=== PATIENT | female | born 1960 | race Caucasian/White ===

== ENCOUNTER 2021-12-13 21:31 | Outpatient (REF) | payer MEDICAID, SELFPAY ==
[2021-12-15 11:47] LABS: COVID-19 RT-PCR UVMMC Result Negative (Negative)
== END 2021-12-13 21:32 | disposition home or self-care (01) ==
LOC: LBN 21:31
PROVIDERS: Visit Provider Family Medicine
DX: Z20.822 Contact with and (suspected) exposure to COVID-19 (principal); J44.1 Chronic obstructive pulmonary disease with (acute) exacerbation
CPT/HCPCS: U0003

== ENCOUNTER 2021-12-25 13:57 | Emergency (ER) | payer MEDICAID, SELFPAY ==
[2021-12-25] VITALS (32 sets, daily range): BP systolic 100–136; BP diastolic 52–97; PULSE 93–120; RESP 8–26; TEMP 36.8; O2SAT 88–98
--- NOTE | 2021-12-25 13:59 | ED.GENADUL_ITS ---
Discharge Plan Disposition Patient Disposition: HOME Condition: Improving Discharge Details Clinical Impression: Acute bronchitis with COPD Primary Care Provider: Unknown,Unknown ED Provider: Renata Knowles Home Meds and New Rx's Prescriptions: New prednisone 20 mg tablet See Rx Instructions .ROUTE .COMPLEX Qty: 18 0RF Rx Instructions: Take 3 tabs daily for 3 days, then 2 tabs daily for 3 days, then 1 tab daily for 3 days. amoxicillin-pot clavulanate 875-125 mg tablet 1 tab PO BID 10 Days Qty: 20 0RF albuterol sulfate 2.5 mg /3 mL (0.083 %) solution for nebulization 2.5 mg IH Q4H PRN (Reason: shortness of breath or wheezing) Qty: 75 0RF benzonatate 100 mg capsule 100 mg PO TID PRN (Reason: cough) Qty: 14 0RF Continued lorazepam 0.5 mg Tablet 0.5 mg PO HS PRN0RF oxycodone 20 mg Tablet Extended Release 12 Hr 20 mg PO BID 0RF fluticasone propion-salmeterol [Advair Diskus] 250-50 mcg/dose Blister With Device 1 inh INHALATION DAILY 0RF albuterol sulfate 0.63 mg/3 mL Solution For Nebulization 0.63 mg inhalation PRN PRN0RF albuterol sulfate 90 mcg/actuation Hfa Aerosol Inhaler 2 puff INHALATION PRN PRN0RF oxycodone [Roxicodone] 5 mg Tablet 5 mg PO PRN PRN0RF prenat.vits,jessica,[id number] Tablet 1 tab PO DAILY 0RF Discharge Instructions Instructions: COPD (Chronic Obstructive Pulmonary Disease) (ED) Additional Instructions: Your lab work and imaging today is reassuring and shows no evidence of acute concerning or significant findings. Your Covid and flu tests were negative. Your chest x-ray is negative for pneumonia. Your chest CT scan is negative for a blood clot in your lung. You are being sent home with a prescription for steroids to take as directed until finished. You can hold on taking the antibiotics unless your symptoms do not improve or worsen over the next few days. Continue to use your regular inhalers as directed. Follow-up with your primary care doctor in 1 week. Return to the emergency department with any worsening or new concerning symptoms. Discharge Data Discharge Date/Time-TO BE ENTERED AT DEPARTURE: 12/25/21 19:03 Discharge Physician: Renata Knowles Medical Decision Making 1420 -- 61-year-old female with a history of COPD on Advair and chronic back pain on OxyContin who presents with shortness of breath cough and general malaise for the past 2 weeks. Heart rate low 100s. Oxygen saturation 92% on room air. She is speaking in full sentences and appears in no acute respiratory distress. She has no wheezing on exam. She is coughing and is noted to have a productive congested cough on exam. Differential diagnosis includes acute bronchitis, COPD exacerbation, pneumonia, Covid. History and presentation appears most likely consistent with PE considering the productive cough, but will obtain screening labs, D-dimer, chest x-ray and give steroids, nebs, fluids and reassess 1600 --patient reassessed and she feels slightly better. She now has wheezing throughout. Oxygen saturation 91 to 92% on room air. She otherwise appears in no acute respiratory distress Labs reviewed. Normal white blood cell count. Covid negative. D-dimer 643 which is just slightly above age-adjusted cut off. Chest x-ray notes hyperinflation but no obvious acute suspect most likely bronchitis or COPD, but will obtain a CT chest patient is agreeable. 181 --CT reviewed and negative for PE or pneumonia. Patient reassessed and she feels much better. She was able to eat and is requesting to go home. We will send with prescriptions for steroids and antibiotics. She states she has plenty of her albuterol and Advair at home. Advised to follow up with the primary care doctor for re-evaluation. Usual and customary return precautions given prior to discharge. Patient was also informed of bilateral thyroid nodules noted on scan and to obtain an outpatient ultrasound through her primary care doctor. Medical Records Medical records reviewed: Yes I reviewed the patient's medical records. Imaging Data Radiologic Study: Radiologist's impression: XR Chest Exam date and time: 12/25/2021 3:32 PM Age: 61 years old Clinical indication: Other: Cough, R/O acute disease TECHNIQUE: Imaging protocol: XR of the chest. Views: 2 views. COMPARISON: No relevant prior studies available. FINDINGS: Lungs:? The lungs are hyperinflated without consolidation.? No pulmonary vascular congestion seen. Pleural spaces:? No pleural effusion or pneumothorax. Heart/Mediastinum:? Cardiomediastinal silhouette is stable with normal heart size, left descending thoracic aorta and mildly off centered trachea. Bones/joints:? Unremarkable for patient's stated age. IMPRESSION: Hyperinflated lungs without acute cardiopulmonary finding. CTA Chest With Contrast Exam date and time: 12/25/2021 4:53 PM Age: 61 years old Clinical indication: Other: SOB, R/O pe TECHNIQUE: Imaging protocol: Computed tomographic angiography of the chest with contrast. 3D rendering (Not supervised by radiologist): MIP and/or 3D reconstructed images were created by the technologist. Radiation optimization: All CT scans at this facility use at least one of these dose optimization techniques: automated exposure control; mA and/or kV adjustment per patient size (includes targeted exams where dose is matched to clinical indication); or iterative reconstruction. Contrast material: OMNIPAQUE 350; Contrast volume: 70 ml; Contrast route: INTRAVENOUS (IV);? COMPARISON: CR XR CHEST 2V PA LATERAL 12/25/2021 3:32 PM FINDINGS: Pulmonary arteries:? Hounsfield attenuation of the right pulmonary artery measures 568 and therefore this study is diagnostic.? No main, lobar or segmental pulmonary artery embolus seen. Aorta:? No thoracic aorta aneurysm or dissection. Lungs:? Lungs are hyperinflated with heterogeneous appearance of the lung parenchyma consistent with emphysematous changes.? No infiltrate. Pleural spaces:? No pleural effusion or pneumothorax. Mediastinum:? There are likely bilateral thyroid lobe hypodensities, measuring approximately 12 mm for the right thyroid lobe and 10 mm for the left.? Smaller thyroid hypodensities likely present.? Heart size is normal.? No pericardial effusion or thickening.? Esophagus appears unremarkable.? Incidental note is made of soft tissue density within the mediastinal fat of the superior anterior mediastinum, series 4, image 19 which may represent reactive versus residual thymus. Lymph nodes:? No definite mediastinal lymphadenopathy. Superior abdomen:? Visualized portion of the liver, kidneys, spleen, pancreas, stomach and bowel are unremarkable in appearance.? The adrenal glands are not well seen. Bones/joints:? No acute osseous injury or underlying osseous mass. Soft tissues:? Unremarkable. IMPRESSION: 1. No main, lobar or segmental pulmonary artery. 2. Hyperinflated lungs with heterogeneous appearance concerning for emphysematous change.? 3.? Bilateral thyroid lobe nodules.? Recommend nonemergent short-term ultrasound to better evaluate these hypodensities. Lab Data Lab results reviewed: Yes I reviewed the patient's lab results. Labs: Laboratory Tests Range/Units 12/25/21 12/25/21 12/25/21 14:38 14:50 14:50 WBC (4.4-10.8) 10^3/uL 10.10 RBC (3.93-5.22) 10^6/uL 5.07 Hgb (11.2-15.7) g/dL 14.5 Hct (36.0-46.0) % 45.0 MCV (80-95) fL 88.8 MCH (27.0-33.0) pg 28.6 MCHC (32.0-36.0) % 32.2 RDW (11.7-14.6) % 14.1 Plt Count (130-400) 10^3/uL 244 MPV (8.0-11.0) fL 10.0 Immature Gran % 0.3 Neutrophils % 72.5 Lymphocytes % 16.4 Monocytes % 9.3 Eosinophils % 1.0 Basophils % 0.5 Nucleated RBC % % 0 Absolute Neutrophils (1.2-6.7) 10^3/uL 7.32 H Absolute Lymphocytes (1.2-3.4) 10^3/uL 1.66 Absolute Monocytes (0.1-0.8) 10^3/uL 0.94 H Absolute Eosinophils (0.0-0.7) 10^3/uL 0.10 Absolute Basophils (0.0-0.2) 10^3/uL 0.05 D-Dimer (<500) ng/mlFEU Sodium (136-145) mmol/L 143 Potassium (3.5-5.1) mmol/L 3.9 Chloride (98-107) mmol/L 108 H Carbon Dioxide (21.0-32.0) mmol/L 27.7 Anion Gap (3-11) mmol/L 7.3 BUN (7-18) mg/dL 16 Creatinine (0.55-1.02) mg/dL 0.7 Estimated GFR/1.73 m2 (mL/min/1.73m2) >= 60.00 Glucose (74-106) mg/dL 118 H Calcium (8.5-10.1) mg/dL 9.4 Total Bilirubin (0.2-1.0) mg/dL 0.2 AST (15-37) U/L 16 ALT (14-59) U/L 31 Alkaline Phosphatase (46-116) U/L 116 Total Protein (6.4-8.2) g/dL 7.5 Albumin (3.4-5.0) g/dL 3.6 SARS-CoV-2 (PCR) (Negative) Negative Influenza Type A (PCR) (Negative) Negative Influenza Type B (PCR) (Negative) Negative RSV (PCR) (Negative) Negative Range/Units 12/25/21 14:50 WBC (4.4-10.8) 10^3/uL RBC (3.93-5.22) 10^6/uL Hgb (11.2-15.7) g/dL Hct (36.0-46.0) % MCV (80-95) fL MCH (27.0-33.0) pg MCHC (32.0-36.0) % RDW (11.7-14.6) % Plt Count (130-400) 10^3/uL MPV (8.0-11.0) fL Immature Gran % Neutrophils % Lymphocytes % Monocytes % Eosinophils % Basophils % Nucleated RBC % % Absolute Neutrophils (1.2-6.7) 10^3/uL Absolute Lymphocytes (1.2-3.4) 10^3/uL Absolute Monocytes (0.1-0.8) 10^3/uL Absolute Eosinophils (0.0-0.7) 10^3/uL Absolute Basophils (0.0-0.2) 10^3/uL D-Dimer (<500) ng/mlFEU 643 H Sodium (136-145) mmol/L Potassium (3.5-5.1) mmol/L Chloride (98-107) mmol/L Carbon Dioxide (21.0-32.0) mmol/L Anion Gap (3-11) mmol/L BUN (7-18) mg/dL Creatinine (0.55-1.02) mg/dL Estimated GFR/1.73 m2 (mL/min/1.73m2) Glucose (74-106) mg/dL Calcium (8.5-10.1) mg/dL Total Bilirubin (0.2-1.0) mg/dL AST (15-37) U/L ALT (14-59) U/L Alkaline Phosphatase (46-116) U/L Total Protein (6.4-8.2) g/dL Albumin (3.4-5.0) g/dL SARS-CoV-2 (PCR) (Negative) Influenza Type A (PCR) (Negative) Influenza Type B (PCR) (Negative) RSV (PCR) (Negative) HPI General Mode of arrival: ambulatory . Date/Time Provider Initiated Documentation: 12/25/21 13:58 . Limitations to Documentation: no limitations . Information obtained by: patient . HPI Narrative: Patient is a 61-year-old female with a history of COPD on Advair and chronic back pain on OxyContin who presents with over 2 weeks of cough, shortness of breath and general malaise. She states she was seen at urgent care for her symptoms a couple weeks ago and given Augmentin and prednisone which she took for 7 days which did improve her symptoms but they did not completely resolved and when she stopped the medication her symptoms returned and worsened. She admits to a cough which was initially productive with white sputum but since yesterday has been green. She states over the last 24 hours she has become more short of breath that is mainly occurring with activity. She denies any known fever, chest pain, vomiting or diarrhea, loss of sense of smell or taste. She states he was fully vaccinated for COVID including 3 vaccines and denies any recent exposure to coronavirus. Related Data Home Medications Medication Instructions Recorded Confirmed albuterol sulfate 0.63 mg/3 mL 0.63 mg INHALATION PRN PRN 12/25/21 12/25/21 solution for nebulization albuterol sulfate 90 mcg/actuation 2 puff INHALATION PRN PRN 12/25/21 12/25/21 aerosol inhaler amoxicillin 875 mg-potassium 1 tab PO BID 10 Days #20 tab 12/25/21 clavulanate 125 mg tablet fluticasone 250 mcg-salmeterol 50 1 inh INHALATION DAILY 12/25/21 12/25/21 mcg/dose blistr powdr for inhalation (Advair Diskus) lorazepam 0.5 mg tablet 0.5 mg PO HS PRN 12/25/21 12/25/21 oxycodone 20 mg tablet,extended 20 mg PO BID 12/25/21 12/25/21 release,12 hr oxycodone 5 mg tablet (Roxicodone) 5 mg PO PRN PRN 12/25/21 12/25/21 prednisone 20 mg tablet See Rx Instructions .ROUTE 12/25/21 .COMPLEX #18 tab prenat.vits,jessica,uso-[id number]-[id number] 1 tab PO DAILY 12/25/21 12/25/21 albuterol sulfate 2.5 mg (3 mL) IH Q4H PRN #75 ml 12/26/21 benzonatate 100 mg capsule 100 mg PO TID PRN #14 cap 12/26/21 Previous Rx's Medication Instructions Recorded amoxicillin 875 mg-potassium 1 tab PO BID 10 Days #20 tab 12/25/21 clavulanate 125 mg tablet prednisone 20 mg tablet See Rx Instructions .ROUTE 12/25/21 .COMPLEX #18 tab albuterol sulfate 2.5 mg (3 mL) IH Q4H PRN #75 ml 12/26/21 benzonatate 100 mg capsule 100 mg PO TID PRN #14 cap 12/26/21 Allergies Allergy/AdvReac Type Severity Reaction Status Date / Time aspirin AdvReac Mild Skin Rash Unverified 12/25/21 14:05 General Stated Complaint: SOB CASI: 3 Review of Systems All systems reviewed & are unremarkable except as noted in HPI and below Constitutional Constitutional: Denies chills, Denies excessive sweating, Denies fatigue, Denies fever(s), Denies weakness and Denies weight loss Eyes Eyes: Reports system reviewed and no additional complaints, except as documented and Denies blurry vision ENT Ears, Nose, Mouth, and Throat: Denies vertigo, Denies dizziness, Denies otalgia, Denies nasal congestion, Denies sore throat and Denies throat swelling Cardiovascular Cardiovascular: Denies chest pain, Denies syncope, Denies rapid heart rate and Reports dyspnea Respiratory Respiratory: Reports chest congestion, Reports cough, Denies pain on inspiration and Reports dyspnea Gastrointestinal Gastrointestinal: Denies abdominal pain, Denies diarrhea and Denies vomiting Genitourinary Genitourinary: Denies hematuria, Denies dysuria and Denies flank pain Musculoskeletal Musculoskeletal: Denies back pain and Denies joint swelling Integumentary/Breasts Skin/Breast: Denies lesions and Denies rash Neurologic Neurologic: Denies behavioral changes, Denies confusion, Denies vertigo, Denies dizziness, Denies syncope, Denies localized weakness and Denies weakness Psychiatric Psychiatric: Denies behavioral changes, Denies confusion and Denies depression Endocrine Endocrine: Denies excessive sweating and Denies fatigue Hematologic/Lymphatic Hematologic/Lymphatic: Denies easy bruising and Denies lymphadenopathy Allergic/Immunologic Allergic/Immunologic: Denies throat swelling PFSH All Active Problems (Updated 12/25/21 @ 18:27 by Renata Knowles DO) Acute bronchitis with COPD (Acute) Medical History (Updated 12/25/21 @ 18:27 by Renata Knowles DO) Chronic back pain COPD (chronic obstructive pulmonary disease) Surgical History (Updated 12/25/21 @ 14:42 by Renata Knowles DO) H/O oophorectomy History of appendectomy History of colostomy with reversal History of lumbar fusion History of tonsillectomy Social History Smoking/Tobacco Use Status: Former Tobacco Use Quit Date: 10/02/21 Smoking risk assessment performed?: Yes Do you feel safe at home: Yes Do you feel safe in your relationship?: Yes Exam Const General: cooperative and healthy appearing Orientation: alert and awake HENMT Head: normal to inspection Ears: hearing grossly normal bilaterally, external ears normal and TM's normal bilaterally General nose exam: external nose normal Face and sinus: normal facial exam Mouth: oral mucosae normal Teeth and gingiva: dentition normal Throat: posterior oropharynx normal Eyes General: appearance normal, both eyes and all related structures Eyelids: eyelids normal Pupils: PERRL EOM: EOM intact bilaterally Neck Neck: normal visual inspection Lymphatic: no lymphadenopathy noted Chest Chest: normal inspection of the chest Resp Effort & Inspection: normal respiratory effort, able to speak in complete sentences and cough Quality of cough: actively coughing Auscultation: clear to auscultation bilaterally Cardio Rate: regular rate Rhythm: regular rhythm GI Inspection: normal to inspection Palpation: soft, not firm, no guarding, no hepatosplenomegaly, no masses and nontender Auscultation: normal bowel sounds Back/Spine/Pelvis Back: no CVA tenderness Skin General skin exam: no rashes or lesions noted Neuro General: patient alert and patient awake Cognition: normal cognition Speech: speech normal Gait: normal gait Motor: muscle tone normal throughout Sensory Exam: no sensory deficits noted Extrem General: normal to inspection, full ROM, capillary refill normal and no edema Psych Appearance: grossly normal Mental Status: mental status grossly normal Speech and Movement: speech and movement normal Affect: normal affect Thought Process: normal
--- NOTE | 2021-12-25 14:30 | DI.RAD_ITS ---
Exam(s) XR CHEST 2V PA LATERAL EXAM: XR CHEST 2V PA LATERAL CLINICAL HISTORY: cough, r/o acute disease TECHNIQUE: 2D digital imaging was performed. COMPARISON: No exams were available for comparison FINDINGS: MEDIASTINUM: Normal. HEART: Normal. PULMONARY VASCULATURE: Normal. LUNGS: Hyperinflated but clear. PLEURAL SPACE: No pleural effusion or pneumothorax. BONE:Unremarkable for age. IMPRESSION: No acute abnormality. DATA REPOSITORY: RADIATION DOSE DELIVERED:
[2021-12-25] MEDS: predniSONE 20 MG TAB 60 MG PO (15:01)
[2021-12-25] MEDS: guaiFENesin/CODEINE PHOSPHATE 10 ML CUP 5 ML PO (15:02)
[2021-12-25] MEDS: Albuterol/Ipratropium 3 ML UPD VIAL UPD (15:02)
[2021-12-25] MEDS: Normal Saline 1,000 ML 1000 ML IV (15:02)
[2021-12-25] MEDS: Normal Saline Flush 10 ML SYR IVP (15:02)
[2021-12-25 15:09] LABS: Abs Immature Grans 0.03 10^3/uL (0.0-0.06); Absolute Basophil Count 0.05 10^3/uL (0.0-0.2); Absolute Lymphocyte Count 1.66 10^3/uL (1.2-3.4); Absolute Monocyte Count 0.94 10^3/uL (0.1-0.8); Absolute Neutrophil Count 7.32 10^3/uL (1.2-6.7); Basophils % 0.5; HGB 14.5 g/dL (11.2-15.7); Immature Grans % 0.3; Lymphocytes % 16.4; MCH 28.6 pg (27.0-33.0); MCHC 32.2 % (32.0-36.0); MCV 88.8 fL (80-95); Monocytes % 9.3; Neutrophils % 72.5; Nucleated RBC 0 %; Platelet Count 244 10^3/uL (130-400); RBC 5.07 10^6/uL (3.93-5.22); RDW 14.1 % (11.7-14.6); RDW-SD 45.8 fL
[2021-12-25 15:21] LABS: ALT 31 U/L (14-59); AST 16 U/L (15-37); Albumin 3.6 g/dL (3.4-5.0); Alkaline Phosphatase 116 U/L (46-116); Anion Gap 7.3 mmol/L (3-11); BUN 16 mg/dL (7-18); Bilirubin, Total 0.2 mg/dL (0.2-1.0); CO2 27.7 mmol/L (21.0-32.0); CREATININE 0.7 mg/dL (0.55-1.02); Calcium 9.4 mg/dL (8.5-10.1); Chloride 108 mmol/L (98-107); Glucose 118 mg/dL (74-106); Potassium 3.9 mmol/L (3.5-5.1); Sodium 143 mmol/L (136-145); Total Protein 7.5 g/dL (6.4-8.2)
[2021-12-25 15:29] LABS: COVID-19 PCR Negative (Negative); Influenza A PCR Negative (Negative); Influenza B PCR Negative (Negative); RSV PCR Negative (Negative)
[2021-12-25 15:51] LABS: D-Dimer 643 ng/mlFEU (<500)
--- NOTE | 2021-12-25 16:00 | DI.CT_ITS ---
Exam(s) CT CHEST PE CTA EXAM: CT CHEST PE CTA CLINICAL HISTORY: shortness of breath, r/o PE. TECHNIQUE: Imaging Protocol: Axial CT angiography was performed with multi-slice acquisition and mu lti-planar and/or 3D reconstructions. CONTRAST MATERIAL: Intravenous: Omnipaque 350 Contrast volume:70 ml COMPARISON: CR,XR XR CHEST 2V PA LATERAL from 12/25/2021 FINDINGS: Pulmonary Arteries: No evidence of filling defect to suggest pulmonary emboli. Tracheobronchial tree: Patent where visualized. Thyroid: Bilateral nodules up to 2.8 cm. Area of soft tissue density projecting posterior to the low er pole of the right lobe with of the thyroid may represent an additional thyroid nodule. Ultrasound recommended for further evaluation. Mediastinum and Lynette: No dominant adenopathy or fluid collection. Pulmonary parenchyma: Emphysematous changes, hyperinflation. No consolidation or dominant measurable mass. Pleura: No effusion or pneumothorax. Heart: The heart is not dilated. No coronary artery calcifications are seen. Aorta: Ascending aorta 3.5 cm. Mild calcifications in thoracic aorta... No aneurysm. No dissection . Abdominal aorta shows calcification and irregular mural thrombus beneath the level of the renal ar teries.. Upper abdomen: Unremarkable. Bones: Unremarkable for age. IMPRESSION: No evidence of pulmonary embolism. Emphysematous changes. Multiple bilateral thyroid nodules. Ultrasound recommended for further evaluation. RADIATION DOSE DELIVERED: 188.46mGy.cm Total DLP DATA REPOSITORY: All CT scans at this facility are submitted to the National Radiology Data Registry (NRDR) Dose Index Registry (DIR) with the [employer] ([employer]). RADIATION OPTIMIZATION: All CT scans at this facility use at least one of these dose optimization te chniques: automated exposure control; mA and/or kV adjustment per patient size (includes targeted exa ms where dose is matched to clinical indication); or iterative reconstruction.
[2021-12-25] MEDS: oxyCODONE 10 MG TAB PO (16:20)
[2021-12-25] MEDS: Omnipaque 350 MG/ML 100 ML BTL IJ (16:57)
[2021-12-25] MEDS: Albuterol 2.5 MG/3 ML INH SOLN VIAL 5 MG UPD (17:09)
--- NOTE | 2021-12-25 17:12 | DI.VRAD_ITS ---
PROCEDURE INFORMATION: Exam: XR Chest Exam date and time: 12/25/2021 3:32 PM Age: 61 years old Clinical indication: Other: Cough, R/O acute disease TECHNIQUE: Imaging protocol: XR of the chest. Views: 2 views. COMPARISON: No relevant prior studies available. FINDINGS: Lungs: The lungs are hyperinflated without consolidation. No pulmonary vascular congestion seen. Pleural spaces: No pleural effusion or pneumothorax. Heart/Mediastinum: Cardiomediastinal silhouette is stable with normal heart size, left descending thoracic aorta and mildly off centered trachea. Bones/joints: Unremarkable for patient's stated age. IMPRESSION: Hyperinflated lungs without acute cardiopulmonary finding. Dictated and Authenticated by: Alexis Kirby MD. Ordering:REYNALDO Yanez MD
--- NOTE | 2021-12-25 17:30 | DI.VRAD_ITS ---
PROCEDURE INFORMATION: Exam: CTA Chest With Contrast Exam date and time: 12/25/2021 4:53 PM Age: 61 years old Clinical indication: Other: SOB, R/O pe TECHNIQUE: Imaging protocol: Computed tomographic angiography of the chest with contrast. 3D rendering (Not supervised by radiologist): MIP and/or 3D reconstructed images were created by the technologist. Radiation optimization: All CT scans at this facility use at least one of these dose optimization techniques: automated exposure control; mA and/or kV adjustment per patient size (includes targeted exams where dose is matched to clinical indication); or iterative reconstruction. Contrast material: OMNIPAQUE 350; Contrast volume: 70 ml; Contrast route: INTRAVENOUS (IV); COMPARISON: CR XR CHEST 2V PA LATERAL 12/25/2021 3:32 PM FINDINGS: Pulmonary arteries: Hounsfield attenuation of the right pulmonary artery measures 568 and therefore this study is diagnostic. No main, lobar or segmental pulmonary artery embolus seen. Aorta: No thoracic aorta aneurysm or dissection. Lungs: Lungs are hyperinflated with heterogeneous appearance of the lung parenchyma consistent with emphysematous changes. No infiltrate. Pleural spaces: No pleural effusion or pneumothorax. Mediastinum: There are likely bilateral thyroid lobe hypodensities, measuring approximately 12 mm for the right thyroid lobe and 10 mm for the left. Smaller thyroid hypodensities likely present. Heart size is normal. No pericardial effusion or thickening. Esophagus appears unremarkable. Incidental note is made of soft tissue density within the mediastinal fat of the superior anterior mediastinum, series 4, image 19 which may represent reactive versus residual thymus. Lymph nodes: No definite mediastinal lymphadenopathy. Superior abdomen: Visualized portion of the liver, kidneys, spleen, pancreas, stomach and bowel are unremarkable in appearance. The adrenal glands are not well seen. Bones/joints: No acute osseous injury or underlying osseous mass. Soft tissues: Unremarkable. IMPRESSION: 1. No main, lobar or segmental pulmonary artery. 2. Hyperinflated lungs with heterogeneous appearance concerning for emphysematous change. 3. Bilateral thyroid lobe nodules. Recommend nonemergent short-term ultrasound to better evaluate these hypodensities. Dictated and Authenticated by: Alexis Kirby MD. Ordering:REYNALDO Yanez MD
--- NOTE | 2021-12-25 20:40 | NUR.NOTE ---
Referral to Care Management to help get patient established with PCP within a week to f/u for Bronchitis and COPD.Nursing Note:
== END 2021-12-25 19:03 | disposition home or self-care (01) ==
PROVIDERS: Emergency Provider Physician Assistant
DX: J20.9 Acute bronchitis, unspecified (principal); J44.0 Chronic obstructive pulmonary disease with (acute) lower respiratory infection; G89.29 Other chronic pain; M54.9 Dorsalgia, unspecified; Z79.899 Other long term (current) drug therapy
CPT/HCPCS: 36415; 71275; 80053; 87637; 94640; 96361; 99284; 71046; 85025; 85379; J3490; J7512; J7613; J7620

== ENCOUNTER → 2022-03-25 00:34 | Outpatient (CLI) | payer MEDICAID, SELFPAY ==
--- OUTSIDE RECORDS SUMMARY | 2022-03-25 00:41 | XMS_ITS | Clinical Summary ---
:1960 Demographics Home Phone Preferred Language Unknown Marital Status Unknown Catholic Affiliation Unknown Race Unknown Ethnic Group Unknown Author Organization [facility] Address [address] [place] [id number] Care Team Providers Name Role Phone Unavailable Primary Care Provider Unavailable Social History Tobacco Use Types Packs/Day Years Used Date Never Assessed Sex Assigned at Date Recorded Not on file Plan of Treatment Not on file
--- OUTSIDE RECORDS SUMMARY | 2022-03-25 00:41 | XMS_ITS | Encounter Summary ---
:1960 Demographics Home Phone Preferred Language Unknown Marital Status Unknown Islam Affiliation Unknown Race Unknown Ethnic Group Unknown Author Organization [facility] Address [address] [place] [address] Care Team Providers Name Role Phone Unavailable Primary Care Provider Unavailable Encounter Details Date Type Department Care Team Description 12/14/2021 Lab Requisition [facility] Outr Resulting Lab, Pathology & Laboratory Provider [facility] [address] [place] [address] Social History Tobacco Use Types Packs/Day Years Used Date Never Assessed Sex Assigned at Date Recorded Not on file documented as of this encounter Plan of Treatment Not on filedocumented as of this encounter Procedures Procedure Name Priority Date/Time Associated Diagnosis Comme nts COVID-19 TEST [facility] Today 12/13/2021 15:30 LAB PCR EDT COVID-19 TESTING Routine 12/13/2021 15:30 Results for this EDT procedure are i n the results section. documented in this encounter Results COVID-19 TEST [facility] PCR (12/13/2021 15:30 EDT) Specimen Swab Performing Organization Address City/State/ZIP Code Phon e Number [facility] [address] [place] [address] SERVICES COVID-19 TESTING (12/13/2021 15:30 EDT) COVID-19 rt-PCR Negative Negative [facility] Result Comment: [facility] This test has not been FDA c leared or approved. This test has been authorized by FDA under an EUA for use by authorized laboratories. This test has been authorized only for detection of nucleic acid fro SERVICES m 2019-nCoV, not for any oth er viruses or pathogens. This test is only authorized for the duration of the declaration that circumstances exist justifying the authorization of emergency use of in vitro d iagnostic tests for detectio n and/or diagnosis of 2019-nCoV under section 564(b)(1) of Act, 21 U.S.C ?? 360bbb-3(b) (1), unless the authorization is terminated or revoked sooner. Negative results do not prec lude 2019-nCoV infection and should not be used as the sole basis for treatment or other patient management decisions. Negative results must be combined with clinical observa tions, patient history, and epidemiological informatio n. Testing was performed using the amber SARS-CoV-2 assay ([employer] on the Amber 6800 System Performing Lab Amber 6800 [facility] Lab [facility] SERVICES Specimen Swab Performing Organization Address City/State/ZIP Code Phon e Number [facility] [address] [place] [address] SERVICES documented in this encounter Visit Diagnoses Not on filedocumented in this encounter
== END ==
PROVIDERS: PCP Nurse Practitioner Family; Visit Provider Nurse Practitioner

== ENCOUNTER → 2022-04-28 02:14 | Outpatient (CLI) | payer MEDICAID, SELFPAY | PROVIDERS: PCP Nurse Practitioner Family; Visit Provider Nurse Practitioner Family ==

== ENCOUNTER → 2022-05-09 02:39 | Outpatient (CLI) | payer MEDICAID, SELFPAY ==
--- NOTE | 2022-05-09 07:30 | DI.MRI_ITS ---
Exam(s) MR LUMBAR SPINE WO EXAM: MR LUMBAR SPINE WO CLINICAL HISTORY: LUMAGO,M54.40,INTERVERTEBRAL DISC DEGENERATION,M51.37. TECHNIQUE: Multiplanar multisequence MRI of the Lumbar spine was performed. COMPARISON: None. FINDINGS: There are no plain films available time this MRI interpretation. Therefore 5 lumbar vertebrae are pr esumed. Conus medullaris is at normal level. There is no evidence of conus mass nor subjacent clumping of in trathecal nerve roots to suggest arachnoiditis. The distal thecal sac appears unremarkable.There is no evidence of Tarlov intrasacral cysts nor other significant findings within the sacral canal Bones:No fractures nor listhesis. There is a bone lesion evident slightly left of center in L3 verte bral body which measures approximately 8 x 8 x 8 millimeters. Not typical signal characteristics of a benign intraosseous hemangioma. However, not bright on STIR images. With respect to the individual levels... T12-L1: Unremarkable L1-2: Normal disc height and signal. No disc herniation nor central canal stenosis.No foraminal steno sis L2-3: Slightly decreased disc height and signal. Anterior osseous lipping. There is annular bulging in the floor both exiting neural foramina, more so on the left side. There is no central spinal can al stenosis. No prominent foraminal stenosis. Facet joints at this level peer unremarkable. L3-4: Mild uniform decreased disc height and signal. Relatively symmetrical annular bulging evident in the floor of both exiting neural foramina but without prominent foraminal stenosis due to the rela tively preserved disc height at this level. Central canal dimensions are within normal limits. No p rominent facet arthropathy. L4-5: This level exhibits advanced disc space narrowing, more so on the right than the left side. Po steriorly there is a broad posterolateral right disc protrusion which extends posteriorly 5 millimete rs and is approximately 2.5 cm wide, extending into the floor of the exiting right neural foramen at this level. There is, however, only mild right-sided foraminal stenosis at this level. There is no left-sided foraminal stenosis at this level. There is some mild mass effect upon the central and rig ht side of the thecal sac at this level noted. There are moderate facet joint degenerative changes b ilaterally at this level. L5-S1: This level exhibits relatively uniform advanced disc space narrowing. There is annular bulgin g which is asymmetrically more prominent at the exiting right neural foramen where the protruded is e xtends posteriorly 4 millimeters, as best seen sagittal images.. There is mild foraminal stenosis on the right side and no significant foraminal stenosis on the left side. Central canal dimensions are lower normal. Mild degenerative changes in both facet joints. Soft tissues: paraspinal soft tissues appear unremarkable. IMPRESSION: 1. Multilevel degenerative disc disease as described above. 2. At L4-5 level there is a broad posterolateral right disc protrusion as described above which does extend into the floor of the exiting right neural foramen at this level causing mild right-sided fora ashley stenosis at this level. There is also some mild mass effect upon the central right side of the thecal sac at this level. 3. At the L5-S1 level there is asymmetric annular bulging with disc protrusion into the floor of the exiting right neural foramen at this level. Probable benign-appearing bone lesion in the L 3 vertebral body, slightly left of center. However, f ollow-up MRI imaging in 6 months time is recommend. DATA REPOSITORY:
== END ==
PROVIDERS: PCP Nurse Practitioner Family; Visit Provider Nurse Practitioner
DX: M51.37 Other intervertebral disc degeneration, lumbosacral region (principal); M51.26 Other intervertebral disc displacement, lumbar region; M51.27 Other intervertebral disc displacement, lumbosacral region
CPT/HCPCS: 72148

== ENCOUNTER 2022-06-22 12:47 | Outpatient (CLI) | payer MEDICAID, SELFPAY ==
--- NOTE | 2022-06-22 06:00 | DI.RAD_ITS ---
Exam(s) XR PAIN CLINIC LUMBAR SP 2V EXAM: XR PAIN CLINIC LUMBAR SP 2V CLINICAL HISTORY: Dx: Lumbar Radiculopathy TECHNIQUE: 2D and realtime digital imaging was performed. Radiologist not present. CONTRAST MATERIAL: None. COMPARISON: No exams were available for comparison FINDINGS: Fluoroscopy was provided for pain management therapy. Please refer to procedure report or details. Cumulative dose: Ka,r=3.48 mGy IMPRESSION: RADIATION DOSE DELIVERED:
[2022-06-22 12:57] VITALS: BP 111/63; PULSE 96; RESP 20; TEMP 36.6; O2SAT 98
--- NOTE | 2022-06-22 13:37 | PDOC.PAIN_ITS ---
Pain Clinic Procedure Note Procedure Note Procedure Note: CAUDAL EPIDURAL STEROID WITH CATHETER INJECTION PROCEDURE NOTE COMMENTS: She was previously evaluated in our office. Pre-procedure pain VAS was 8/10. Dx: Lumbosacral radiculopathy Nery Adkins has been referred to the [facility] for lumbar epidural steroid injection. Patient was greeted by the nurse who verified the patient?s name and .? Patient was then taken to the fluoroscopy suite. The patient was interviewed and the medical record was reviewed.? There were no medical, pharmacologic, radiographic, or other structural contraindications to attempting fluoroscopically guided caudal epidural steroid injection. Risks and expected side effects as well as potential benefits of the procedure were reviewed and voiced concerns addressed.? The patient consent form was signed.? Standard time-out procedure was performed. The patient was placed in the prone position on the fluoroscopy table and automated blood pressure cuff, pulse oximeter, and 3 lead EKG was applied.? The skin entry point for entering/approaching the sacral hiatus was marked.? Following thorough chlorhexadine preparation of the skin and draping and 1% lidocaine infiltration of the skin entry point and subcutaneous tissues, a 17 gauge Touhy needle was placed under fluoroscopic guidance through the sacral hiatus.? Needle tip placement and depth were aided and confirmed by fluoroscopy. There was no paresthesia or return of blood or CSF through the needle. A 19G Arrow spinal catheter was threaded to the L5-S1 height and 1 cc's of Omnipaque 240 was injected with clear epidural spread confirmed with fluoroscopy.? Aspi ration was performed with no resulting blood or clear fluid. One cc of depomedrol (80 mg/cc) was injected.? This was followed by 2 cc of 1% Lidocaine to flush the catheter.?There was not any unusual discomfort expressed.? The needle and catheter were removed together without difficulty. Vital signs were stable throughout the procedure and were as recorded in nursing records.? Follow up plans and appointments were discussed.? Post procedure instruction was given as documented in nursing records and having met discharge criteria and was discharged from the [facility]. This procedure can be completed up to 3 times per 12 months. Post-procedure pain VAS was 0/10. Jaime Levin DO, MPH [facility]-Pain Management [facility]-Center for Pain Management
[2022-06-22] MEDS: methylPREDNISolone ACETATE 80 MG/ML VIAL IJ (13:43)
[2022-06-22] MEDS: Omnipaque 240 MG/ML 50 ML BTL IJ (13:44)
[2022-06-22 13:47] VITALS: BP 132/71; PULSE 96; RESP 17; O2SAT 98
== END 2022-06-22 12:48 | disposition home or self-care (01) ==
LOC: PC 12:48
PROVIDERS: PCP Nurse Practitioner Family; Visit Provider Preventive Medicine Occupational Medicine
DX: M54.17 Radiculopathy, lumbosacral region (principal)
CPT/HCPCS: 62323; 72100; J1040; Q9967

== ENCOUNTER → 2022-07-07 01:41 | Outpatient (CLI) | payer MEDICAID, SELFPAY ==
--- NOTE | 2022-07-07 07:45 | DI.US_ITS ---
Exam(s) US THYROID EXAM: US THYROID CLINICAL HISTORY: f/u from CT showiing nodules,e04.1 TECHNIQUE: Ultrasound performed using standard protocol. COMPARISON: No exams were available for comparison FINDINGS: Thyroid ultrasound was performed according to the usual protocol. Right thyroid lobe measures 55 x 2 0 x 14 millimeters and left thyroid lobe measures 50 x 17 x 18 millimeters. Thyroid gland has a mild ly heterogeneous appearance. The isthmus is about 2 millimeters in thickness. There is 15 x 9 by 19 millimeter in diameter mixed cystic and solid nodule of the upper pole of the l eft thyroid lobe. This is wider than tall and has smooth margins and no echogenic foci. This is a T R 2 lesion by TI-RADS classification, no follow up recommended. No other significant findings. IMPRESSION: Benign-appearing upper pole left thyroid lobe nodule as described above, no follow up recommended. DATA REPOSITORY:
== END ==
PROVIDERS: PCP Nurse Practitioner Family; Visit Provider Nurse Practitioner Family
DX: E04.1 Nontoxic single thyroid nodule (principal)
CPT/HCPCS: 76536

== ENCOUNTER 2022-11-03 08:01 | Outpatient (CLI) | payer MEDICAID, SELFPAY ==
--- NOTE | 2022-11-03 06:00 | DI.RAD_ITS ---
Exam(s) XR PAIN CLINIC LUMBAR SP 2V EXAM: XR PAIN CLINIC LUMBAR SP 2V CLINICAL HISTORY: Dx: Lumbar Radiculopathy. TECHNIQUE: Fluoroscopy was provided for the referring physician for guidance with performing pain cl inic injection procedure. COMPARISON: No exams were available for comparison FINDINGS: Please see procedure note for details. Fluoro time: 35.2 seconds RADIATION DOSE DELIVERED: Ka,r=4.69 mGy
[2022-11-03 08:10] VITALS: BP 119/77; PULSE 67; RESP 20; TEMP 36.7; O2SAT 97
[2022-11-03] MEDS: methylPREDNISolone ACETATE 80 MG/ML VIAL IJ (08:49)
[2022-11-03] MEDS: Omnipaque 240 MG/ML 50 ML BTL IJ (08:50)
[2022-11-03 08:51] VITALS: BP 135/64; PULSE 93; RESP 16; O2SAT 98
--- NOTE | 2022-11-03 08:53 | PDOC.PAIN_ITS ---
Date of service: 11/03/22 Time of Service: 09:01 Pain Clinic Procedure Note Procedure Note Procedure Note: PROCEDURE NOTE CAUDAL EPIDURAL STERIOID INJECTION Date of Service: November 03, 2022 Patient: Nery Adkins Provider: Jaime Levin DO, MPH Nery Adkins has been referred to the [facility] for caudal epidural steroid injection. Pre-operative diagnosis: Lumbosacral Radiculopathy Post-operative diagnosis: Same Pre-Procedure Pain: VAS= 8 /10. COMMENTS: Symptoms: low back pain with radiation down the bilateral legs Imaging reviewed: Lumbar MRI Nery was interviewed and the medical record was reviewed. There were no medical, pharmacologic, radiographic or other structural contraindications to attempting fluoroscopically guided epidural steroid injection. Risks and expected side effects as well as potential benefit of the procedure were reviewed with Ms Adkins, and her voiced concerns were addressed. The printed consent form was signed. Standard time-out procedure was performed. Ms Adkins was placed in the prone position on the fluoroscopy table and automated blood pressure cuff and pulse oximeter applied. The skin entry point for entering/approaching the epidural space by a caudal approach through the sacral hiatus ed identified with surgical skin marking. Following thorough chlorhexidine preparation x 2 of the skin and draping and 1% lidocaine infiltration of the skin entry point and subcutaneous tissues, a 17 gauge Touhy needle was placed under fluoroscopic guidance into the epidural space. Needle tip placement and depth were aided and confirmed by fluoroscopy in the lateral and AP position. There was no paresthesia or return of blood or CSF through the needle. 2 cc of Omnipaque 240 was injected with clear epidural sp read confirmed with fluoroscopy. An Arrow 19G radio-opaque epidural catheter was advanced into the epidural space to the L5-S1 level and 2 cc of Omnipaque 240 was injected with clear epidural spread. 80 mg of Depomedrol was injected. There was no unusual discomfort expressed by Nery . The needle and catheter were then flushed with 2 cc of 1% Lidocaine and they were removed together without difficulty. (48 cc of Omnipaque was wasted) Ms Adkins's vital signs were stable throughout the procedure and were as recorded in the docflowsheet by the nursing staff. If given, dosages of intravenous drugs for anxiolysis and analgesia were documented in MAR. Follow up plans and appointments were discussed with Ms Adkins. Post procedure instruction was given as documented in nursing documentation and having met discharge criteria, she was discharged from the [facility]. COMMENTS: No apparent complications. Post-procedure pain: VAS= 5/10. This p rocedure can be completed up to 3 times per 12 months. JAIME LEVIN DO, MPH [facility] - Subspecialty board certification in Pain Medicine [facility]-Center for Pain Management
== END 2022-11-03 08:02 | disposition home or self-care (01) ==
LOC: PC 08:01
PROVIDERS: PCP Nurse Practitioner Family; Visit Provider Preventive Medicine Occupational Medicine
DX: M54.17 Radiculopathy, lumbosacral region (principal)
CPT/HCPCS: 62323; 72100; J1040; Q9967